=== PATIENT | female | born 1990 | race Caucasian/White ===

== ENCOUNTER → 2016-11-02 | Outpatient (REF) | payer OTHER | LOC: M LAB REF 10:01 | PROVIDERS: ATTEND Physician Assistant | DX: J20.9 Acute bronchitis, unspecified (principal) ==

== ENCOUNTER 2017-04-11 09:18 | Emergency (ER) | payer OTHER ==
[~2017-04-11] VITALS: Ht 152.4 cm; Wt 58.6 kg
[2017-04-11 10:29] LABS: CALCIUM OXALATE CRYSTALS SMALL
--- NOTE | 2017-04-11 11:29 | REP ---
LEFT RIB SERIES WITHOUT CHEST: 04/11/2017 CLINICAL HISTORY: Left chest wall pain. Evaluate for rib fracture or other. Four views compared to the chest x-ray this date show the posterior rib articulations grossly intact. Visualized scapula, humerus and clavicle were unremarkable. The ribs show no visible or displaced fracture, focal rib lesion, pleural thickening, pleural effusion or pneumothorax. IMPRESSION: 1. No visible or displaced rib fracture, focal rib lesion, effusion or pneumothorax. Signed by Brendon Bravo MD 04/11/2017 06:58 P
--- NOTE | 2017-04-11 11:58 | REP ---
CHEST PA/LATERAL: 04/11/2017 CLINICAL HISTORY: Left-sided chest pain. Two views show the lungs well inflated without infiltrate, effusion, atelectasis, or mass. There is no lateral pleural thickening or apical scarring. No pneumothorax. The heart, mediastinal and hilar contours are normal. There is very gentle dextroconvex curve lower thoracic spine. Visualized ribs, clavicles, shoulders, and spine without acute finding. IMPRESSION: 1. No acute cardiopulmonary change. Signed by Brendon Bravo MD 04/11/2017 06:59 P
--- NOTE | 2017-04-11 12:45 | REP ---
CT abdomen and pelvis without contrast: 04/11/2017. Clinical history: Left flank pain. Findings: There are no prior studies. The renal stone protocol was utilized. CT abdomen: Lung bases are clear. Heart is not enlarged. There is no pericardial thickening or effusion and I see no hiatal hernia. The liver, spleen, gallbladder, pancreas, adrenal glands, stomach and upper abdominal small bowel loops are all unremarkable. Stool and gas throughout the colon representing some mild to moderate constipation. The aorta is unremarkable. There is no periaortic or other retroperitoneal pathologic sized lymphadenopathy. Bilateral kidneys show no stone within the collecting system or pyramids on either side. I see no hydronephrosis, hydroureter, perinephric edema or renal mass. Ureters are noted in the course to the bladder without dilatation or stone. No perinephric or periureteral edema. Lung window review of all CT slice levels shows no perforation or abscess. Bone windows show lumbar and lower thoracic spine and the visualized ribs all grossly intact. CT pelvis: Sacrum, SI joints, iliac bones, acetabulae, ischia and hips are all without fracture or focal lesion. Distal ureters in the pelvis are without dilatation or stone. Bladder unremarkable. Uterus anteverted, not enlarged. No adnexal mass or pelvic free fluid. Distal left colon, sigmoid and rectum with some retained stool. No sign of colitis or diverticulitis. Cecum was unremarkable and without inflammatory change. I cannot clearly define an appendix on these images. No ventral or inguinal hernia nor pathologic inguinal adenopathy. Impression: 1. No renal, ureteral or bladder stone. No hydronephrosis or hydroureter. No perinephric edema 2. Solid organs in the upper abdomen as well as the gallbladder, stomach, colon and small bowel loops intact. 3. No evidence of ventral or inguinal hernia nor pathologic inguinal adenopathy. Nothing acute. Signed by Brendon Bravo MD 04/11/2017 06:59 P
[2017-04-11] MEDS ORDERED: IBUP80TA PO (13:06)
[2017-04-11 13:10] VITALS: BP 93/68
== END 2017-04-11 13:10 | disposition home or self-care (01) ==
LOC: M ED 09:18
DX: R10.9 Unspecified abdominal pain (principal)